=== PATIENT | female | born 2000 | race Caucasian/White ===

== ENCOUNTER 2019-02-02 17:04 | Emergency (ER) | payer BC ==
[~2019-02-02] VITALS: Ht 167.6 cm; Wt 56.8 kg
[2019-02-02] MEDS ORDERED: normal saline 1000ML IV soln IVB ONE (17:15)
--- NOTE | 2019-02-02 17:19 | NUR ---
Called poison control, spoke with patient portal representative, due to patients overdosing on approx. 20 sleep aid tablets "doxylamine succineate" current recommendations ASA, tylenol, tox screen, HCG urine. Poison control also stated that depending on somnolence to hold off on activated charcoal, MD discretion. Symptoms Anticholinergic effects: tachycardia, somnolence/ sedation, seizures, agitation, QT and QRS prolongation. Benzo's for tachycarida and/or seizures. QRS >120, 1 to 2 amps of bicarb QT >500 optomize magnesium, potassium, calcium Will notify Dr. Cruz regarding recommendations
[2019-02-02 17:36] LABS: BASOPHILS # (AUTO) 0.1 X10'3 (0-0.2); BASOPHILS % (AUTO) 0.5 % (0-1); EOSINOPHILS # (AUTO) 0.1 X10'3 (0-0.9); EOSINOPHILS % (AUTO) 0.5 % (0-6); HEMATOCRIT 43.7 % (35.0-45.0); HEMOGLOBIN 14.9 g/dl (12.0-16.0); LYMPHOCYTES # (AUTO) 2.6 X10'3 (1.1-4.8); LYMPHOCYTES % (AUTO) 23.3 % (21-51); MEAN CORPUSCULAR HEMOGLOBIN 31.4 PG (27.0-31.0); MEAN CORPUSCULAR HGB CONC 34.2 g/dL (33.0-36.5); MEAN PLATELET VOLUME 8.4 FL (7.4-10.4); MONOCYTES # (AUTO) 0.6 X10'3 (0-0.9); NEUTROPHILS # (AUTO) 7.9 X10'3 (1.8-7.7); NEUTROPHILS % (AUTO) 70.7 % (42-75); PLATELET COUNT 316 X10'3 (140-440); RED BLOOD COUNT 4.75 X10'6 (4.20-5.60); RED CELL DISTRIBUTION WIDTH 12.6 % (11.5-14.5); WHITE BLOOD COUNT 11.1 X10'3 (4.5-11.0)
--- NOTE | 2019-02-02 17:43 | NUR ---
PT REPORTS TAKING MEDICATION BECAUSE "I WAS OVER IT" SHE SAYS SHE HAS A BREAK UP WITH HER BOYFRIEND 2 WEEKS AGO AND "IT HURTS".
[2019-02-02 17:53] LABS: ALANINE AMINOTRANSFERASE 24 U/L (12-78); ALBUMIN 4.3 G/DL (3.4-5.0); ALBUMIN/GLOBULIN RATIO 1.3 (1.1-1.5); ALKALINE PHOSPHATASE 75 IU/L (20-180); ANION GAP 13 (8-16); ASPARTATE AMINO TRANSFERASE 13 U/L (10-37); BILIRUBIN,TOTAL 2.5 MG/DL (0.1-1.0); BLOOD UREA NITROGEN 9 MG/DL (7-18); BUN/CREATININE RATIO 10.2 (6.6-38.0); CALCIUM 9.5 MG/DL (8.5-10.1); CHLORIDE 104 MMOL/L (99-107); CREATININE 0.88 MG/DL (0.40-0.90); ETHANOL < 0.010 GM/DL (0.0-0.010); GLUCOSE 77 MG/DL (70-104); POTASSIUM 3.5 MMOL/L (3.5-5.1); SODIUM 139 MMOL/L (135-145); TOTAL PROTEIN 7.5 G/DL (6.4-8.2); eGFR 83 ML/MIN
[2019-02-02] MEDS ORDERED: ondansetron/PF 4mg/2ml inj IV ONE ×2 (18:00→18:05)
[2019-02-02 18:09] LABS: ACETAMINOPHEN < 2.0 UG/ML (10-30)
[2019-02-02 18:11] LABS: PARTIAL THROMBOPLASTIN TIME 29 SECONDS (22-32)
--- NOTE | 2019-02-02 18:43 | NUR ---
Patient medication were given to Martín at bedside.
[2019-02-02 19:12] LABS: CLARITY,URINE CLOUDY (Clear); COLOR,URINE YELLOW (Yellow); GLUCOSE, URINE NEGATIVE (Neg); KETONES,URINE 40 mg/dl (Neg); LEUKOCYTE ESTERASE ,URINE NEGATIVE (Neg); NITRITES, URINE NEGATIVE (Neg); OCCULT BLOOD,URINE LARGE (Neg); PROTEIN,URINE 30 mg/dl (Neg)
[2019-02-02 19:14] LABS: URINE AMPHETAMINE SCREEN NEGATIVE (Neg); URINE BARBITUATE SCREEN NEGATIVE (Neg); URINE BENZODIAZEPINES SCREEN NEGATIVE (Neg); URINE CANNABINOID SCREEN NEGATIVE (Neg); URINE COCAINE SCREEN NEGATIVE (Neg); URINE METHADONE SCREEN NEGATIVE (Neg); URINE OPIATE SCREEN NEGATIVE (Neg); URINE PHENCYCLIDINE SCREEN NEGATIVE (Neg)
[2019-02-02 19:20] LABS: UA COLLECTION TYPE CLN CATCH MIDSTREAM
[2019-02-02 19:24] LABS: BACTERIA,URINE FEW /HPF (Neg); MUCUS STRANDS MODERATE /LPF (Neg); RBC,URINE 20-50 /HPF (0-2); SQUAMOUS EPITHELIAL CELL,UR MANY /LPF (FEW)
[2019-02-02] MEDS ORDERED: BACL10TA PO (19:36)
[2019-02-02] MEDS ORDERED: ESCI10TA54 PO (19:36)
--- NOTE | 2019-02-02 19:49 | NUR ---
concerned about the prolonged QTc - posion control wants to make sure her k is at least 4, ca at least 9 and mag at least 2
[2019-02-02] MEDS: potassium Cl 10 mEq/100mL bag IV SCH ×3 (19:55→20:55)
[2019-02-02] MEDS ORDERED: potassium Cl oral solution 20 MEQ/15 ML PO ONE (20:20)
[2019-02-02 21:54] LABS: MAGNESIUM 1.8 MG/DL (1.5-2.4)
[2019-02-02 22:00] LABS: ACETAMINOPHEN < 2.0 UG/ML (10-30)
--- NOTE | 2019-02-02 23:00 | NUR ---
This patient is awake and well oriented. She speaks softly and clearly. Patient is warm and dry with good color. Patient states a recent depression and a suicidal attempt today by taking a handful of pills. The states she is despondent over a breakup with her boyfriend. Patient also has superficial cuts on her left anterior forarm. This patient denies S/I or H/I at this time. She denies hallucinations. Her thought process is linear. Patient has a saline lock in her right are. This literary writer D/C'd it, the catheter was intact. The patient was advised that she is in a safe place. She has been medication compliant. Q15 minute rounding is being done for patient safety.
[2019-02-02 23:59] LABS: ALBUMIN 3.6 G/DL (3.4-5.0); ANION GAP 9 (8-16); BLOOD UREA NITROGEN 9 MG/DL (7-18); BUN/CREATININE RATIO 10.3 (6.6-38.0); CHLORIDE 107 MMOL/L (99-107); CREATININE 0.87 MG/DL (0.40-0.90); GLUCOSE 120 MG/DL (70-104); POTASSIUM 4.2 MMOL/L (3.5-5.1); SODIUM 138 MMOL/L (135-145); TOTAL CARBON DIOXIDE 22.3 MMOL/L (24-32); eGFR 84 ML/MIN
[2019-02-03] MEDS: baclofen 10mg tablet PO SCH ×2 (00:24→08:34)
--- NOTE | 2019-02-03 02:04 | NUR ---
Patient up to bathroom. Ambulates with normal gait. Returns to sleep.
[2019-02-03 05:50] VITALS: BP 106/62
--- NOTE | 2019-02-03 06:16 | NUR ---
PT AWAKE. LAYING IN BED
[2019-02-03] MEDS ORDERED: citalopram 20mg tablet PO SCH (08:00)
== END 2019-02-03 15:08 ==
LOC: ER 17:04
DX: T45.0X2A Poisoning by antiallergic and antiemetic drugs, intentional self-harm, initial encounter (principal); S00.81XA Abrasion of other part of head, initial encounter; S60.812A Abrasion of left wrist, initial encounter; F32.9 Major depressive disorder, single episode, unspecified; R79.1 Abnormal coagulation profile; Z88.2 Allergy status to sulfonamides; Z79.899 Other long term (current) drug therapy; X83.8XXA Intentional self-harm by other specified means, initial encounter; Y93.89 Activity, other specified; Y92.89 Other specified places as the place of occurrence of the external cause; Y99.8 Other external cause status
CPT/HCPCS: 36415; 71045; 80048; 80053; 80305; 80320; 80329; 81001; 82948; 83735; 84443; 85025; 85610; 85730; 93005; 96374; 99285; J2405; J3480; J7030

== ENCOUNTER 2019-07-11 22:44 | Emergency (ER) | payer BC, MEDICAID ==
[~2019-07-11] VITALS: Ht 167.6 cm; Wt 56.8 kg
[~2019-07-11 22:44] MED LIST: CITA-124 PO; HYDR-3686 PO; TRAZ-251 PO
[2019-07-11] MEDS ORDERED: ondansetron 4mg rapidly disintigrating tab PO ONE (23:15)
[2019-07-11] MEDS ORDERED: ONDA4TAB6 PO (23:48)
--- NOTE | 2019-07-11 23:49 | NUR ---
Pt ambulatory with steady gait and with c-collar intact to the restroom. Pt has two friends assisting her while out of bed.
[2019-07-12 00:12] VITALS: BP 108/67
== END 2019-07-12 00:15 | disposition home or self-care (01) ==
LOC: ER 22:45
DX: S06.0X0A Concussion without loss of consciousness, initial encounter (principal); S00.03XA Contusion of scalp, initial encounter; M54.2 Cervicalgia; R11.2 Nausea with vomiting, unspecified; F32.9 Major depressive disorder, single episode, unspecified; Z88.2 Allergy status to sulfonamides; Z79.899 Other long term (current) drug therapy; W18.09XA Striking against other object with subsequent fall, initial encounter; Y93.89 Activity, other specified; Y92.009 Unspecified place in unspecified non-institutional (private) residence as the place of occurrence of the external cause; Y99.8 Other external cause status
CPT/HCPCS: 70450; 72125; 99284

== ENCOUNTER 2020-05-04 23:28 | Emergency (ER) | payer BC, MEDICAID ==
[~2020-05-04] VITALS: Ht 167.6 cm; Wt 52.0 kg
[~2020-05-04 23:28] MED LIST changes: +ONDA4TAB6 PO
[2020-05-05] MEDS ORDERED: iohexol 350MG/ML 100ml bottle IV ONE (00:09)
[2020-05-05 00:32] LABS: BASOPHILS % (AUTO) 0.5 % (0-1); EOSINOPHILS # (AUTO) 0.3 X10'3 (0-0.9); EOSINOPHILS % (AUTO) 3.2 % (0-6); HEMATOCRIT 44.5 % (35.0-45.0); HEMOGLOBIN 15.2 g/dl (12.0-16.0); LYMPHOCYTES # (AUTO) 3.5 X10'3 (1.1-4.8); LYMPHOCYTES % (AUTO) 41.2 % (21-51); MEAN CORPUSCULAR HEMOGLOBIN 31.7 PG (27.0-31.0); MEAN CORPUSCULAR VOLUME 93.1 FL (78-98); MEAN PLATELET VOLUME 8.1 FL (7.4-10.4); MONOCYTES # (AUTO) 0.6 X10'3 (0-0.9); MONOCYTES % (AUTO) 6.5 % (2-12); NEUTROPHILS # (AUTO) 4.1 X10'3 (1.8-7.7); NEUTROPHILS % (AUTO) 48.6 % (42-75); PLATELET COUNT 294 X10'3 (140-440); RED BLOOD COUNT 4.78 X10'6 (4.20-5.60); RED CELL DISTRIBUTION WIDTH 12.6 % (11.5-14.5); WHITE BLOOD COUNT 8.5 X10'3 (4.5-11.0)
[2020-05-05 00:46] LABS: ALANINE AMINOTRANSFERASE 25 U/L (12-78); ALBUMIN 4.6 G/DL (3.4-5.0); ALBUMIN/GLOBULIN RATIO 1.5 (1.1-1.5); ALKALINE PHOSPHATASE 63 IU/L (20-180); ANION GAP 11 (8-16); ASPARTATE AMINO TRANSFERASE 22 U/L (10-37); BILIRUBIN,TOTAL 3.4 MG/DL (0.1-1.0); BLOOD UREA NITROGEN 13 MG/DL (7-18); BUN/CREATININE RATIO 14.3 (6.6-38.0); CALCIUM 9.2 MG/DL (8.5-10.1); CHLORIDE 100 MMOL/L (99-107); CREATININE 0.91 MG/DL (0.40-0.90); GLUCOSE 88 MG/DL (70-104); SODIUM 137 MMOL/L (135-145); TOTAL CARBON DIOXIDE 25.8 MMOL/L (24-32); TOTAL PROTEIN 7.7 G/DL (6.4-8.2); eGFR 79 ML/MIN
[2020-05-05 00:49] LABS: POTASSIUM 3.7 MMOL/L (3.5-5.1)
[2020-05-05] MEDS ORDERED: ONDA8TAB13 PO (01:29)
[2020-05-05] MEDS ORDERED: ondansetron 4mg rapidly disintigrating tab PO ONE (01:30)
[2020-05-05 01:45] VITALS: BP 121/80
== END 2020-05-05 01:47 | disposition home or self-care (01) ==
LOC: ER 23:29
DX: R09.1 Pleurisy (principal); F32.9 Major depressive disorder, single episode, unspecified; R07.89 Other chest pain; R06.02 Shortness of breath; Z88.2 Allergy status to sulfonamides; Z79.899 Other long term (current) drug therapy
CPT/HCPCS: 36415; 71275; 80053; 84484; 85025; 93005; 99285; Q9967